=== PATIENT | male | born 2000 | race African-American/Black ===

== ENCOUNTER 2023-01-23 00:36 | Emergency (ER) | payer SELFPAY ==
[~2023-01-23] VITALS: Ht 170.2 cm; Wt 59.0 kg
[2023-01-23 01:09] VITALS: BP 118/84; PULSE 114; RESP 20; TEMP 97.8; O2SAT 95
[2023-01-23] MEDS ORDERED: SOLU-MEDROL ONE (01:20)
[2023-01-23] MEDS ORDERED: BENADRYL ONE (01:20)
[2023-01-23] MEDS ORDERED: PEPCID ONE ×2 (01:21→01:47)
[2023-01-23] MEDS: BENADRYL IM STA (01:27)
[2023-01-23] MEDS: SOLU-MEDROL IM STA (01:27)
[2023-01-23] MEDS: PEPCID PO STA ×2 (01:27→01:50)
[2023-01-23 01:30] VITALS: BP 110/80; PULSE 86; RESP 18; O2SAT 93
[2023-01-23] MEDS ORDERED: ZOFRAN ODT ONE (01:47)
[2023-01-23] MEDS: ZOFRAN ODT SL STA (01:50)
[2023-01-23] MEDS: EPINEPHrine IM STA (01:51)
== END 2023-01-23 02:06 | disposition home or self-care (01) ==
LOC: ER 00:36
DX: T78.2XXA Anaphylactic shock, unspecified, initial encounter (principal); Z91.013 Allergy to seafood
CPT/HCPCS: 99284; 96372; J1200; J2930

== ENCOUNTER 2023-03-24 16:16 | Emergency (ER) | payer SELFPAY ==
[~2023-03-24] VITALS: Ht 167.6 cm; Wt 59.0 kg
[2023-03-24 16:26] VITALS: BP 118/59; PULSE 103; RESP 18; TEMP 97.8; O2SAT 98
[2023-03-24] MEDS ORDERED: PEPCID PO STA (16:26)
[2023-03-24] MEDS ORDERED: EPINEPHrine SQ STA (16:26)
[2023-03-24] MEDS ORDERED: PREDNISONE PO STA (16:26)
[2023-03-24] MEDS ORDERED: BENADRYL PO STA (16:26)
[2023-03-24] MEDS ORDERED: PREDNISONE ONE (16:31)
[2023-03-24] MEDS ORDERED: ADRENALIN ONE (16:31)
[2023-03-24] MEDS ORDERED: BENADRYL PO ONE (16:31)
[2023-03-24] MEDS ORDERED: PEPCID ONE (16:32)
== END 2023-03-24 16:58 | disposition home or self-care (01) ==
LOC: ER 16:16
DX: T78.40XA Allergy, unspecified, initial encounter (principal); X58.XXXA Exposure to other specified factors, initial encounter
CPT/HCPCS: 99284; 96372; Q0163; J0171; J7512